=== PATIENT | male | born 1995 | race Caucasian/White ===

== ENCOUNTER 2017-03-31 23:58 | Emergency (ER) | payer SELFPAY ==
[~2017-03-31] VITALS: Ht 177.8 cm; Wt 79.4 kg
--- NOTE | 2017-04-01 00:26 | NUR ---
TO BED 4 BIB PARAMEDICS C/O SEIZURE. RECEIVED PT AAOX4 NO ACUTE DISTRESS NOTED, RESP EVEN AND UNLABORED.NOTED ORAL TRAUMA, NO URINARY OR BOWEL INCONTINENCE NOTED. PLACE PT ON CARDIAC MONITORING, CONTINUOUS POX. PLACE PT ON SEIZURE PRECAUTION WITH PADDED SIDERAILS. PENDING ER MD VELEZ.
--- NOTE | 2017-04-01 00:29 | NUR ---
ER MD AT BEDSIDE TO EVAL PT WITH ORDERS RECEIVED. WILL CARRY OUT ORDERS.
[2017-04-01] MEDS ORDERED: LORAZEPAM INJ 2 MG/ML VIAL ONE (00:38)
--- NOTE | 2017-04-01 00:42 | NUR ---
RN AT BEDSIDE TO MEDICATE PT.
[2017-04-01] MEDS ORDERED: LORAZEPAM INJ 2 MG/ML VIAL IV ONE (01:00)
[2017-04-01 01:07] LABS: CREATININE 0.9 mg/dL (0.6-1.3); POTASSIUM 3.6 mmol/L (3.5-5.1)
[2017-04-01] MEDS ORDERED: ACETAMINOPHEN ES 500 MG TABLET ONE (01:24)
--- NOTE | 2017-04-01 01:25 | NUR ---
PT C/O HEADACHE. VERBAL ORDERS PER DR. SANTACRUZ TO GIVE TLYENOL 1GM PO ONE TIME.
[2017-04-01] MEDS ORDERED: ACETAMINOPHEN ES 500 MG TABLET PO ONE (01:30)
[2017-04-01] MEDS ORDERED: IBUPROFEN 600 MG TABLET PO ONE ×2 (02:54→03:00)
--- NOTE | 2017-04-01 03:18 | NUR ---
IV removed. Catheter intact and site benign. Pressure and 4x4 applied to site. No bleeding noted. Patient discharged to home in stable condition. Written and verbal after care instructions given. Patient verbalizes understanding of instruction. ambulatory with a steady gait noted. pt aaox4 no acute distress noted, resp even and unlabored. advice pt not to drive or operate any machinery due to pt was given ativan. pt verbalize understanding.
[2017-04-01 03:20] VITALS: BP 127/75
== END 2017-04-01 03:20 | disposition other institution (70) ==
LOC: ER 04-01 00:01
DX: R51 Headache (principal); R56.9 Unspecified convulsions; F41.9 Anxiety disorder, unspecified; F32.9 Major depressive disorder, single episode, unspecified; F12.288 Cannabis dependence with other cannabis-induced disorder; Z76.5 Malingerer [conscious simulation]
CPT/HCPCS: 36415; 70450; 72125; 80048; 96374; 99285; A4606; J2060; L0172; Z7610

== ENCOUNTER 2017-04-01 06:10 | Emergency (ER) | payer SELFPAY ==
[~2017-04-01] VITALS: Ht 177.8 cm; Wt 83.9 kg
[2017-04-01 06:15] VITALS: BP 103/41
[2017-04-01] MEDS ORDERED: ACETAMINOPHEN 325 MG TABLET ONE (06:41)
[2017-04-01] MEDS ORDERED: ACETAMINOPHEN 325 MG TABLET PO ONE (07:00)
== END 2017-04-01 07:01 | disposition home or self-care (01) ==
LOC: ER 06:10
DX: R51 Headache (principal); F41.0 Panic disorder [episodic paroxysmal anxiety]; F12.10 Cannabis abuse, uncomplicated
CPT/HCPCS: 99282; A4606; Z7610